=== PATIENT | female | born 1950 | race Caucasian/White ===

== ENCOUNTER 2018-05-16 10:33 | Outpatient (CLI) | payer MEDICARE, BC ==
[2018-05-16 11:39] LABS: #Basophils 0.1 thou/uL (0.0-0.2); #Eosinphils 0.1 thou/uL (0.0-0.7); #Lymphocytes 1.5 thou/uL (1.20-3.40); #Monocytes 0.4 thou/uL (0.11-0.59); #Neutrophils 2.9 thou/uL (1.40-6.50); %Basophils 1.4 % (0.0-1.0); %Eosinophils 1.4 % (0.0-10.0); %Lymphocytes 30.6 % (21.0-51.0); %Monocytes 8.5 % (0.0-10.0); %Neutrophils 58.2 % (42.0-75.0); Hemoglobin 14.1 g/dL (12.0-16.0); Mean Corpuscular Hemoglobin 32.7 pg (27.0-31.0); Mean Corpuscular Volume 96.4 fL (78.0-98.0); Mean Platelet Volume 9.3 fL (7.4-10.4); Platelet Count 193 thou/uL (130-400); RBC Distribution Width 11.4 % (11.5-14.5); Red Blood Cell (RBC) Count 4.31 mill/uL (4.20-5.40)
[2018-05-16 12:12] LABS: Calcium 9.3 mg/dL (7.8-10.44); Chloride 105 mmol/L (98-107); Glucose 87 mg/dL (80-115); Potassium 3.6 mmol/L (3.5-5.1); Sodium 140 mmol/L (136-145)
[2018-05-16 12:14] LABS: Anion Gap 9 mmol/L (10-20); Carbon Dioxide 30 mmol/L (23-31)
[2018-05-16 12:17] LABS: BUN (Urea Nitrogen) 13 mg/dL (9.8-20.1)
[2018-05-16 13:50] LABS: Calc. Creatinine Clearance 0 mL/min (70-130); Estimated GFR-MDRD 76
== END 2018-05-16 10:34 | disposition home or self-care (01) ==
LOC: LABBT 10:33
PROVIDERS: ATTEND Specialist
DX: Z01.812 Encounter for preprocedural laboratory examination (principal); C50.912 Malignant neoplasm of unspecified site of left female breast
CPT/HCPCS: 80048; 85025

== ENCOUNTER 2018-05-22 07:10 | Day surgery (SDC) | payer MEDICARE, BC ==
[2018-05-16 10:53] VITALS: BMI 21.6
[2018-05-22] MEDS ORDERED: Bupivacaine/Epinephrine 0.25% 30 ML VIAL ONE ×2 (08:26→10:59)
[2018-05-22] MEDS ORDERED: Isosulfan Blue 50 MG/5 ML VIAL ONE (09:02)
[2018-05-22] MEDS ORDERED: Fentanyl 100 MCG/2 ML VIAL ONE ×2 (09:31→10:59)
[2018-05-22] MEDS ORDERED: Ketorolac Tromethamine 30 MG/ML VIAL ONE (09:41)
[2018-05-22] MEDS ORDERED: CEFAZOLIN 2 GM/50 ML BAG ONE (09:41)
[2018-05-22] MEDS ORDERED: Scopolamine 1.5 mg/72 hour Patch ONE (09:41)
[2018-05-22] MEDS ORDERED: Dexamethasone 20 MG/5 ML VIAL ONE (11:56)
[2018-05-22] MEDS ORDERED: Ondansetron PF 4 MG/2 ML Vial ONE ×2 (11:56→12:33)
[2018-05-22] MEDS ORDERED: Lidocaine 1% PF 5 ML VIAL ONE (11:56)
[2018-05-22] MEDS ORDERED: ePHEDrine/0.9% NaCl/PF SYRINGE 50 mg/10 ml ONE (11:56)
[2018-05-22] MEDS ORDERED: PROPOFOL 200 MG/20 ML VIAL ONE (11:56)
[2018-05-22] MEDS ORDERED: PHENYLEPHRINE-NS 100 MCG/ML 10 ML SYRINGE ONE (11:56)
[2018-05-22] MEDS ORDERED: Metoclopramide HCl 10 MG/2 ML VIAL ONE (12:38)
--- NOTE | 2018-05-22 14:18 | NM ---
LYMPHOSCINTIGRAPHY: DATE: 05/22/2018. HISTORY: Left-sided breast cancer. FINDINGS: The left periareolar region was cleansed with alcohol swabs. 0.44 mCi of filtered Technetium 99m lab eled sulfur colloid was injected subcutaneously in 4 separate aliquots around the areola. Imaging wa s then performed in the frontal and lateral projections. Radiotracer activity at the injection site is seen. There are 3 focal areas of radiotracer activity overlying the axilla, evidence of right axi llary nodes. IMPRESSION: Successful left breast lymphadenopathy as above. POS: MARY
--- NOTE | 2018-05-22 14:18 | MMO ---
SPECIMEN RADIOGRAPH: DATE: 05/22/2018. HISTORY: Evaluate postoperative specimen. FINDINGS: A radiograph from a postoperative specimen is provided. It contains a post biopsy clip and wire. IMPRESSION: Specimen radiograph as above. POS: CARMEN
--- NOTE | 2018-05-25 20:13 | OP ---
DATE OF PROCEDURE: 05/22/2018 PREOPERATIVE DIAGNOSIS: Left breast cancer. POSTOPERATIVE DIAGNOSIS: Left breast cancer. OPERATION PERFORMED: Left axillary sentinel lymph node mapping, left axillary sentinel lymph node biopsy, left breast ultrasound-guided needle localization of left breast cancer, and left breast needle localized lumpectomy. ANESTHESIA: General endotracheal. INDICATIONS: The patient is a 68-year-old white female. She has been diagnosed with left breast cancer. BRCA testing was obtained and it was negative. All possible options were discussed in regard to surgical management. She presents this time for left breast lumpectomy and sentinel lymph node biopsy. The mass is not palpable and therefore, ultrasound-guided needle localization will be performed. DESCRIPTION OF OPERATION: Informed consent was obtained. Lymphoscintigraphy was performed IN left breast identifying left axillary sentinel lymph nodes. The patient was taken to the operating room where general anesthesia was obtained with the patient in supine position. Left breast and axilla were prepped with ChloraPrep and draped in sterile fashion. The left breast was infiltrated with Lymphazurin using about 2.5 mL. This was infiltrated in the periareolar subdermal tissue and the breast was massaged for 5 minutes. Attention was then turned to the axilla. Local anesthetic was then infiltrated initially and then a transverse incision was created at the inferior aspect of the axilla. Dissection was carried through skin, subcutaneous tissue, and the superficial axillary fascia. Neoprobe was utilized to identify areas of maximum radio intensity. I was able to identify 3 separate sentinel lymph nodes. 2 of these were fairly brightly stained with blue dye while the 3rd was not. Each of these 3, however, were significantly radioactive in comparison with surrounding tissue. There was no other area of dominant radioactivity that was identified. Each of these lymph nodes was dissected free circumferentially and investing lymphatics were divided between clamps and 3-0 silk ties. These lymph nodes were submitted for touch prep and all of these were felt to be negative during the course of the surgery. Meticulous hemostasis was obtained within the axilla. The wound was closed in layers with 3-0 and 4-0 Monocryl. Dermabond was placed externally. Attention was then turned to the breast. Ultrasound was utilized to identify the lesion within the left breast. This was at about the 12 o'clock radian just above the areola. The location of the malignancy was marked on the overlying skin. I then placed a localizing needle in a medial to lateral fashion under ultrasound guidance. Local anesthetic was infiltrated. A transverse incision was created over the area of the malignancy. I dissected through skin and subcutaneous tissue, and then raised flaps in all directions to give access to the underlying cancer. I began medially on the far side of the localizing needle and then dissected posteriorly down to the chest wall. The malignancy was lying just anterior to the pectoral fascia. I dissected it laterally along the pectoral fascia. Careful dissection was carried out to identify a margin of tissue around the malignancy. It was palpable within the deep tissues of the breast. Ultrasound was utilized during the course of the resection to optimize margins. The specimen was removed intact. It was tagged with a suture to assist with orientation. This was then sent to mammography for specimen mammography. This demonstrated the wire was well placed within the malignancy and the clip was excised as well. By examining the excised lesion with ultrasound, I felt the superior margin was perhaps a little bit close. I therefore decided to resect an additional superior margin. This was about 4 mm thick and extended from the anterior to the posterior aspect of the biopsy cavity. It was removed in intact orientation and submitted to Pathology. Meticulous hemostasis obtained within the wound. It was closed in layers with 3-0 and 4-0 Monocryl suture. Additional local anesthetic was infiltrated during closure. Dermabond was placed externally. There were no complications with any portion of the operation. The patient tolerated the procedure well and was taken to recovery room in stable condition. Job ID: [id number]
== END 2018-05-22 15:50 | disposition home or self-care (01) ==
LOC: SDC 07:10
PROVIDERS: ATTEND Specialist
PROC: 0HBU0ZZ Excision of Left Breast, Open Approach (ICD-10-PCS; principal; 2018-05-22)
PROC: 07B60ZX Excision of Left Axillary Lymphatic, Open Approach, Diagnostic (ICD-10-PCS; 2018-05-22)
DX: C50.412 Malignant neoplasm of upper-outer quadrant of left female breast (principal); Z90.89 Acquired absence of other organs; Z98.890 Other specified postprocedural states; Z17.0 Estrogen receptor positive status [ER+]
CPT/HCPCS: 19301; 38525; 38900; 76098; 78195; 88307; 88331; 88334; 88342; A9541; Q9968; J0131; J1100; J1885; J2001; J2405; J2704; J2765; J3010